=== PATIENT | female | born 1990 | race Asian ===

== ENCOUNTER 2016-05-03 05:41 | Emergency (ER) | payer OTHER ==
[2016-05-03 06:01] VITALS: BP 118/83
[2016-05-03 06:46] LABS: Urine Bilirubin Negative (NEGATIVE); Urine Ketone Negative (NEGATIVE); Urine Nitrite Negative (NEGATIVE); Urine Protein 30 mg/dL (NEGATIVE); Urine Specific Gravity >=1.030 SP.GR. (1.005-1.010); Urine Urobilinogen Normal (NORMAL)
--- NOTE | 2016-05-03 06:52 | ERNOTE ---
Back Pain ER HPI Date of Service: 05/03/16 Presenting Symptoms: injury/pain to back Time Seen by Provider: 05/03/16 06:29 Source: patient Exam Limitations: no limitations Immunizations: IMMUNIZATION HX Immunizations Up to Date Yes History of Influenza Vaccine No Hx Pneumococcal Vaccination No Allergies/Adverse Reactions: Allergies aloe vera Allergy (Verified 05/03/16 06:01) Home Medications: HOME MEDICATIONS Ibuprofen [Motrin] 200 - 800 mg PO Q6H PRN #100 tab 06/21/15 [Last Taken Unknown ] Ciprofloxacin HCl [Cipro] 500 mg PO BID #14 tablet 05/03/16 [Last Taken Unknown] Narrative: lower back pain began yesterday, no injury, no fever. Feels achy all over. Urine feels hot but does not burn per se. LMP 3 wks ago. 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 Absent: shortness of breath, wheezing Cardiology: Present: no symptoms reported Gastrointestinal/Abdominal: Absent: nausea, vomiting, diarrhea, abdominal pain Genitourinary: Present: no symptoms reported Musculoskeletal: Present: no symptoms reported Skin: Present: no symptoms reported - Patient's Past Medical History Patient History - Medical: No pertinent hx Patient History - Cancer: No Hx of Cancer Patient History - Surgical Procedures: No surgical history LMP (females 10-50): 3 weeks - Social History Living Situations: other Smoking Status: Current every day smoker Have you smoked in the past 12 months: Yes Do you dip or chew tobacco: No Alcohol Use: none Drug Use: none Physical Exam - Physical Exam General Appearance: Present: wd/wn, alert, mild distress Eye Exam: Normal inspection: bilateral Ears, Nose, Throat: Present: normal ENT inspection, hearing grossly normal, normal pharynx Neck: Present: normal inspection, nontender Respiratory: Present: no respiratory distress, normal breath sounds, no accessory muscle use, lungs clear Cardiovascular/Chest: Present: regular rate, rhythm, no murmur, normal peripheral pulses, tachycardia Gastrointestinal/Abdominal: Present: normal bowel sounds Back Exam: Present: normal inspection, no CVA tenderness, decreased range of motion, other - lower lumbar paraspinal tenderness Neurological Exam: Present: alert, oriented Skin Exam: Present: normal color ED Progress - Results and Orders Patient's Lab Results:: I have reviewed the patient's lab results. - Vital Signs Patient's Vital Signs:: I have reviewed the patient's vital signs. Vital Signs: Vital Signs 05/03/16 05:41 Temperature 37.5 C Pulse Rate 114 H Respiratory 18 Rate Blood Pressure 118/83 - Progress/Reassessment Chief Complaint: Back Pain Plan - Plan Plan: Ciprofloxin 500 bid. Work excuse for time missed today but going back to work. FU PCP post treatment. Departure Clinical Impression: UTI (urinary tract infection) - Departure Disposition: Home self-care Condition: Good Instructions: Urinary Tract Infection, Adult, [id number], Form - Excuse from Work, School, or Physical Activity Additional Instructions: Finish antibiotics. Take tylenol or ibuprofen as needed for pain. See your doctor after treatment is finished for recheck. Prescriptions: Ciprofloxacin HCl [Cipro] 500 mg PO BID #14 tablet
[2016-05-03 06:54] LABS: Urine Appearance Slightly Cloudy; Urine Blood 10 /ul (NEGATIVE); Urine Color Yellow
[2016-05-03 06:58] LABS: Urine Bacteria 2+; Urine Mucus Few - 1+; Urine RBC 0-5 /hpf (0-5)
== END 2016-05-03 07:43 | disposition home or self-care (01) ==
LOC: ER 05:41
DX: N39.0 Urinary tract infection, site not specified (principal); F17.210 Nicotine dependence, cigarettes, uncomplicated